=== PATIENT | male | born 1960 | race African-American/Black ===

== ENCOUNTER 2024-03-21 14:31 | Inpatient (IN) | payer OTHER ==
[2024-03-21 15:08] VITALS: BMI 20.3
[2024-03-21] MEDS ORDERED: IBUPROFEN 400 MG TABLET (FP) PO PRN (17:05)
[2024-03-21] MEDS ORDERED: P-EPHED 60MG/TRIPROLIDI 2.5MG TABLET PO PRN (17:05)
[2024-03-21] MEDS ORDERED: ONDANSETRON *ODT* 4 MG TABLET SL PRN (17:05)
[2024-03-21] MEDS ORDERED: BENZONATATE 200 MG CAPSULE PO PRN (17:05)
[2024-03-21] MEDS ORDERED: guaiFENesin 600 MG TABLET.ER (FP) PO PRN (17:05)
[2024-03-21] MEDS ORDERED: NICOTINE POLACRILEX 2 MG LOZENGE BC PRN (17:05)
[2024-03-21] MEDS ORDERED: BENZOCAINE/MENTHOL (CHLORASEPTIC ) LOZENGE MM PRN (17:05)
[2024-03-21] MEDS ORDERED: IBUPROFEN 600 MG TABLET (FP) PO PRN (17:05)
[2024-03-21] MEDS ORDERED: MAGNESIUM HYDROX 2400MG/30ML ORAL SUSPENSION 30 ML CUP PO PRN (17:05)
[2024-03-21] MEDS ORDERED: POLYETHYLENE GLYCOL (HEALTHYLAX) 3350 17 GM PACKET PO PRN (17:05)
[2024-03-21] MEDS ORDERED: NICOTINE POLACRILEX 2 MG GUM BUC PRN (17:05)
[2024-03-21] MEDS ORDERED: BISMUTH SUBSALICYLATE 524 MG/30 ML PO PRN (17:05)
[2024-03-21] MEDS: INSULIN ASPART SLIDING SCALE (NOVOLOG) 1 VIAL SQ SCH (18:21)
[2024-03-21] MEDS: MELATONIN 5 MG TABLETS PO SCH (22:43)
[2024-03-21] MEDS: THIAMINE 100 MG TABLET PO SCH (22:44)
[2024-03-22] MEDS: FUROSEMIDE 20 MG TABLET (FP) PO SCH (10:28)
[2024-03-22] MEDS: PRENATAL VITAMINS W/ FOLIC ACID TABLET (FP) PO SCH (10:28)
[2024-03-22 10:34] LABS: POTASSIUM 4.3 mmol/L (3.5-5.1)
[2024-03-22 10:35] LABS: HEMATOCRIT 34.9 % (35.4-49); HEMOGLOBIN 11.2 GM/dL (11.7-16.9); MCH 29.9 pg (25.7-33.7); MCHC 32.2 g/dl (32.0-35.9); MEAN CELL VOLUME 92.9 fl (80-96); MEAN PLT VOLUME 9.5 fl (7.5-11.1); PLATELET COUNT 177 10^3/uL (134-434); RBC 3.76 M/mm3 (4.00-5.60); RDW 15.7 % (11.9-15.9); WHITE BLOOD COUNT 5.9 K/mm3 (4.0-10.0)
[2024-03-22 10:37] LABS: ALBUMIN 3.2 g/dl (3.4-5.0); CALCIUM 9.3 mg/dL (8.5-10.1)
[2024-03-22 10:40] LABS: BLOOD UREA NITROGEN 22.6 mg/dL (7-18)
[2024-03-22 10:42] LABS: BILIRUBIN,TOTAL 0.7 mg/dL (0.2-1); TOT PROT 7.1 g/dl (6.4-8.2)
[2024-03-22 10:43] LABS: CREATININE 1.4 mg/dL (0.55-1.3)
[2024-03-22] MEDS ORDERED: ENTECAVIR 0.5 MG PO SCH (10:43)
[2024-03-22] MEDS: LIPASE/PROTEASE/AMYLASE 36,000 UNIT CAPSULE PO SCH (10:54)
[2024-03-22] MEDS: TACROLIMUS ANHYDROUS 1 MG CAPSULE PO SCH (10:55)
[2024-03-22] MEDS: ENTECAVIR 0.5 MG PO SCH (11:07)
[2024-03-22] MEDS: ENTECAVIR 0.05 MG/ML PO SCH (11:07)
[2024-03-22] MEDS: METHOCARBAMOL 500 MG TABLET PO PRN (12:56)
[2024-03-22] MEDS: ACETAMINOPHEN 325 MG TABLET (FP) PO PRN (12:56)
[2024-03-22] MEDS ORDERED: INSULIN (NOVOLOG) ASPART 100 UNITS/ML 10ML VIAL ONE (22:29)
[2024-03-22] MEDS: QUEtiapine FUMARATE 100 MG TABLET (FP) PO SCH (22:31)
[2024-03-23] MEDS: LOPERAMIDE HCL 2 MG CAPSULE PO PRN (12:29)
[2024-03-23] MEDS ORDERED: INSULIN (NOVOLOG) ASPART 100 UNITS/ML 10ML VIAL ONE (17:07)
[2024-03-23] MEDS: diazePAM 5 MG TABLET PO SCH (22:06)
[2024-03-24] MEDS: diazePAM 5 MG TABLET PO SCH (05:26)
[2024-03-24] MEDS: hydrOXYzine PAMOATE 25 MG CAPSULE (FP) PO PRN (09:26)
[2024-03-24] MEDS: ENTECAVIR 0.5 MG TABLET PO SCH (09:52)
[2024-03-24] MEDS: DICYCLOMINE HCL 10 MG CAPSULE PO PRN (11:37)
[2024-03-24] MEDS ORDERED: INSULIN (NOVOLOG) ASPART 100 UNITS/ML 10ML VIAL ONE (16:44)
[2024-03-25] MEDS: diazePAM 5 MG TABLET PO SCH (05:25)
[2024-03-25] MEDS: MAG HYDROX/AL HYDROX/SIMETH 30 ML UNIT-DOSE CUP PO PRN (07:00)
[2024-03-25] MEDS: ASPIRIN 81 MG CHEWABLE TABLETS PO ONE (07:00)
[2024-03-25] MEDS: PANCRELIPASE PO SCH (08:06)
[2024-03-25] MEDS: [UNRECOGNIZED DRUG - OTHER] PO SCH (08:06)
[2024-03-25] MEDS: TACROLIMUS ANHYDROUS 1 MG PO SCH (09:41)
[2024-03-25] MEDS: diazePAM 5 MG TABLET PO PRN (22:11)
[2024-03-26] MEDS: diazePAM 5 MG TABLET PO ONE (05:35)
[2024-03-26] MEDS: ASPIRIN 81 MG CHEWABLE TABLETS PO SCH (09:11)
[2024-03-26] MEDS ORDERED: INSULIN (NOVOLOG) ASPART 100 UNITS/ML 10ML VIAL ONE ×3 (10:54→22:05)
[2024-03-27] MEDS ORDERED: INSULIN (NOVOLOG) ASPART 100 UNITS/ML 10ML VIAL ONE ×3 (06:46→22:03)
[2024-03-28] MEDS ORDERED: INSULIN (NOVOLOG) ASPART 100 UNITS/ML 10ML VIAL ONE ×2 (06:10→22:25)
[2024-03-28] MEDS: NITROGLYCERIN SUBLINGUAL 1/150 0.4 MG TAB SL ONE ×2 (11:09→18:32)
[2024-03-28] MEDS ORDERED: NITROGLYCERIN SUBLINGUAL 1/150 0.4 MG TAB ONE (18:31)
[2024-03-29] MEDS: NITROGLYCERIN SUBLINGUAL 1/150 0.4 MG TAB SL ONE (10:48)
[2024-03-29 10:57] VITALS: BP 147/76; PULSE 103; RESP 18; TEMP 97.7
== END 2024-03-29 10:50 | disposition home or self-care (01) | DRG 896 ==
LOC: YASAS 14:31 → Y6N 17:33
PROVIDERS: ADMIT Allergy & Immunology; ATTEND Surgery
PROC: HZ2ZZZZ Detoxification Services for Substance Abuse Treatment (ICD-10-PCS; principal; 2024-03-21)
DX: F10.230 Alcohol dependence with withdrawal, uncomplicated (principal); N18.6 End stage renal disease; F14.20 Cocaine dependence, uncomplicated; Z94.0 Kidney transplant status; B18.1 Chronic viral hepatitis B without delta-agent; F39 Unspecified mood [affective] disorder; F17.210 Nicotine dependence, cigarettes, uncomplicated; E11.22 Type 2 diabetes mellitus with diabetic chronic kidney disease; E11.65 Type 2 diabetes mellitus with hyperglycemia; R07.89 Other chest pain; K86.81 Exocrine pancreatic insufficiency; I25.10 Atherosclerotic heart disease of native coronary artery without angina pectoris; I44.0 Atrioventricular block, first degree; R00.0 Tachycardia, unspecified; Z95.5 Presence of coronary angioplasty implant and graft; Z91.013 Allergy to seafood; Z56.0 Unemployment, unspecified
CPT/HCPCS: 36415; 80053; 80305; 80307; 82962; 85027; 86780; 93005; 93010

== ENCOUNTER 2024-03-25 08:05 | Emergency (ER) | payer OTHER ==
[2024-03-25 08:49] VITALS: BP 146/81; PULSE 84; RESP 18; TEMP 98; BMI 20.7
[2024-03-25 09:05] LABS: VENOUS BASE EXCESS -1.9 mmol/L (-2-2); VENOUS O2 SATURATION 33.7 % (70-80); VENOUS PCO2 58.7 mmHg (38-52); VENOUS PH 7.265 (7.310-7.410)
[2024-03-25] MEDS ORDERED: ASPIRIN 81 MG CHEWABLE TABLETS ONE (09:17)
[2024-03-25] MEDS ORDERED: INSULIN REGULAR HUMAN 100 UNITS/ML *VIAL ONE (09:18)
[2024-03-25 09:19] LABS: CHLORIDE 104 mmol/L (98-107); SODIUM 132 mmol/L (136-145)
[2024-03-25 09:21] LABS: CALCIUM 9.4 mg/dL (8.5-10.1)
[2024-03-25 09:22] LABS: ALBUMIN 3.1 g/dl (3.4-5.0); BLOOD UREA NITROGEN 25.4 mg/dL (7-18); CO2 26 mmol/L (21-32); GLUCOSE,RANDOM 324 mg/dL (74-106); MAGNESIUM 2.1 mg/dL (1.8-2.4)
[2024-03-25] MEDS: LACTATED RINGERS SOLUTION 1000 ML INFUS.BAG IV ONE (09:22)
[2024-03-25] MEDS: ASPIRIN 81 MG CHEWABLE TABLETS PO ONE (09:22)
[2024-03-25] MEDS: INSULIN REGULAR HUMAN 100 UNITS/ML *VIAL IVPUSH ONE (09:23)
[2024-03-25 09:25] LABS: CREATININE 1.6 mg/dL (0.55-1.3); PHOSPHOROUS 2.5 mg/dL (2.5-4.9); SGOT/AST 68 U/L (15-37); SGPT/ALT 29 U/L (13-61)
[2024-03-25 09:26] LABS: BILIRUBIN,TOTAL 0.3 mg/dL (0.2-1); TOT PROT 7.8 g/dl (6.4-8.2)
[2024-03-25 09:28] LABS: ALK PHOS 121 U/L (45-117)
[2024-03-25 09:30] LABS: N-TERMINAL BNP 318.8 pg/ml (5-125)
[2024-03-25 09:31] LABS: BASO % 0.5 % (0-2.0); EOS % 5.1 % (0-4.5); HEMATOCRIT 36.9 % (35.4-49); HEMOGLOBIN 11.7 GM/dL (11.7-16.9); LYMPH % 18.5 % (8-40); MCHC 31.6 g/dl (32.0-35.9); MEAN CELL VOLUME 95.1 fl (80-96); MEAN PLT VOLUME 9.2 fl (7.5-11.1); MONO % 11.9 % (3.8-10.2); PLATELET COUNT 166 10^3/uL (134-434); RBC 3.88 M/mm3 (4.00-5.60); RDW 15.6 % (11.9-15.9); WHITE BLOOD COUNT 5.7 K/mm3 (4.0-10.0)
[2024-03-25 09:37] LABS: INR 1.03 (0.83-1.09); PROTHROMBIN TIME (PATIENT) 11.8 SEC (9.7-13.0)
[2024-03-25 09:40] LABS: ACTIVATED PTT 33.2 SECONDS (25.2-36.5)
[2024-03-25 09:50] LABS: ANION GAP 2 mmol/L (4-13); POTASSIUM 8.8 mmol/L (3.5-5.1)
[2024-03-25 10:56] LABS: POTASSIUM 5.1 mmol/L (3.5-5.1)
[2024-03-25 10:58] LABS: BLOOD UREA NITROGEN 24.9 mg/dL (7-18)
[2024-03-25 11:06] LABS: CREATININE 1.3 mg/dL (0.55-1.3)
== END 2024-03-25 12:03 | disposition home or self-care (01) ==
LOC: JER 08:05
PROC: 3E033GC Introduction of Other Therapeutic Substance into Peripheral Vein, Percutaneous Approach (ICD-10-PCS; principal; 2024-03-25)
DX: R07.89 Other chest pain (principal)
CPT/HCPCS: 36415; 71045-TC-FY; 80048; 80053; 82803; 82962; 83735; 83880; 84100; 84484; 85025; 85610; 85730; 86850; 86900; 86901; 93005; 93010; 99285-25